=== PATIENT | male | born 1940 | race Caucasian/White ===

== ENCOUNTER 2019-05-13 10:38 | Emergency (ER) | payer OTHER ==
[~2019-05-13] VITALS: Ht 185.4 cm; Wt 103.4 kg
[2019-05-13 11:00] LABS: URINE BILIRUBIN NEGATIVE (Negative); URINE BLOOD 2+ (Negative); URINE CLARITY CLEAR; URINE COLOR YELLOW; URINE GLUCOSE-RANDOM* NEGATIVE (Negative); URINE KETONES NEGATIVE (Negative); URINE LEUKOCYTES-REFLEX NEGATIVE (Negative); URINE NITRITE-REFLEX NEGATIVE (Negative); URINE PROTEIN (DIPSTICK) NEGATIVE (Negative); URINE UROBILINOGEN 0.2 E.U./dl (0.2-1.0)
[2019-05-13 11:13] LABS: ABSOLUTE NEUTROPHILS 6.3 thou/uL (1.4-8.2); BASOPHILS 0.5 % (0.0-2.0); EOSINOPHILS 2.5 % (0.0-3.0); HEMOGLOBIN 15.5 gm/dL (14.0-18.0); LYMPHOCYTES 10.3 % (24.0-44.0); MCH 30.1 pg (26.0-34.0); MCHC 33.8 g/dL (28.0-37.0); MONOCYTES 9.1 % (1.0-8.0); PLATELET COUNT 160 thou/uL (150-400); POLYS 77.6 % (36.0-66.0); RBC 5.16 mil/uL (4.50-6.00); RDW 13.9 % (10.5-14.5); WBC 8.2 thou/uL (4.0-11.0)
[2019-05-13 11:16] LABS: URINE RBC 3-10 Few /HPF (0-2)
[2019-05-13 11:17] LABS: BACTERIA-REFLEX 1-9 Few /HPF (None Seen); CASTS None Seen /LPF (None Seen); CRYSTALS None Seen /LPF (None Seen); SQUAMOUS 0-3 Few /LPF (0-3); URINE WBC-REFLEX 0-5 Rare /HPF (0-5)
[2019-05-13 11:29] LABS: CALCIUM 10.6 mg/dL (8.5-10.1); CREATININE 1.4 mg/dL (0.7-1.3); POTASSIUM 3.9 mmol/L (3.5-5.1)
[2019-05-13 11:35] LABS: ALBUMIN 3.9 g/dL (3.4-5.0); TOTAL BILIRUBIN 1.2 mg/dL (<0.1-1.0); TOTAL PROTEIN 7.1 g/dL (6.4-8.2)
[2019-05-13] MEDS ORDERED: NORCO 5-325 TA1 EAC1 PO (12:21)
[2019-05-13] MEDS ORDERED: FLOMAX0.4 MG PO (12:21)
[2019-05-13 12:47] VITALS: BP 135/76
== END 2019-05-13 12:48 | disposition home or self-care (01) ==
LOC: ER 10:38
PROVIDERS: Emergency Medicine; Physician Assistant
DX: N20.1 Calculus of ureter (principal); R10.31 Right lower quadrant pain; Z87.442 Personal history of urinary calculi

== ENCOUNTER 2021-01-21 13:55 | Emergency (ER) | payer OTHER ==
[~2021-01-21] VITALS: Ht 185.4 cm; Wt 102.1 kg
[~2021-01-21 13:55] MED LIST: FLOMAX0.4 MG PO; NORCO 5-325 TA1 EAC1 PO
[2021-01-21 14:35] LABS: ABSOLUTE NEUTROPHILS 6.2 thou/uL (1.4-8.2); BASOPHILS 0.7 % (0.0-2.0); EOSINOPHILS 1.3 % (0.0-3.0); HEMATOCRIT 47.9 % (42.0-52.0); LYMPHOCYTES 11.3 % (24.0-44.0); MCHC 33.4 g/dL (28.0-37.0); MCV 89.9 fL (80.0-100.0); MONOCYTES 6.3 % (1.0-8.0); PLATELET COUNT 179 thou/uL (150-400); POLYS 80.4 % (36.0-66.0); RBC 5.33 mil/uL (4.50-6.00); RDW 14.6 % (10.5-14.5); WBC 7.7 thou/uL (4.0-11.0)
[2021-01-21 14:43] LABS: CALCIUM 10.7 mg/dL (8.5-10.1); CREATININE 1.3 mg/dL (0.7-1.3); POTASSIUM 4.2 mmol/L (3.5-5.1)
[2021-01-21 14:55] LABS: ALBUMIN 3.8 g/dL (3.4-5.0); DIRECT BILIRUBIN 0.2 mg/dL (<0.1-0.2); TOTAL BILIRUBIN 0.8 mg/dL (0.2-1.0)
[2021-01-21 15:13] LABS: URINE BILIRUBIN NEGATIVE (Negative); URINE BLOOD 1+ (Negative); URINE CLARITY CLEAR; URINE COLOR YELLOW; URINE GLUCOSE-RANDOM* NEGATIVE (Negative); URINE KETONES NEGATIVE (Negative); URINE LEUKOCYTES-REFLEX NEGATIVE (Negative); URINE NITRITE-REFLEX NEGATIVE (Negative); URINE PROTEIN (DIPSTICK) NEGATIVE (Negative); URINE SPECIFIC GRAVITY 1.025 (1.005-1.035)
[2021-01-21 15:28] LABS: CASTS None Seen /LPF (None Seen); SQUAMOUS 0-3 Few /LPF (0-3)
[2021-01-21 15:29] LABS: BACTERIA-REFLEX None Seen /HPF (None Seen); CRYSTALS None Seen /LPF (None Seen); URINE RBC 1-2 Rare /HPF (NONE SEEN); URINE WBC-REFLEX None Seen /HPF (0-5)
[2021-01-21 16:22] VITALS: BP 124/88
== END 2021-01-21 16:22 | disposition home or self-care (01) ==
LOC: ER 13:55
PROVIDERS: Emergency Medicine
DX: T67.8XXA Other effects of heat and light, initial encounter (principal); R41.0 Disorientation, unspecified; Z77.123 Contact with and (suspected) exposure to radon and other naturally occurring radiation; Z87.442 Personal history of urinary calculi; Z79.899 Other long term (current) drug therapy; Z79.891 Long term (current) use of opiate analgesic; X30.XXXA Exposure to excessive natural heat, initial encounter; Y93.89 Activity, other specified; Y92.096 Garden or yard of other non-institutional residence as the place of occurrence of the external cause; Y99.8 Other external cause status

== ENCOUNTER → 2021-05-01 | Outpatient (CLI) | payer OTHER ==
[~2021-05-01] MED LIST changes: +B COMPLEX WITH1 EAC1 PO; +B-121000 MC2 PO; +CENTRUM SILVER1 EAC7 PO; +FISH OIL 1,0001 EAC9 PO; +GLUCOSAMINE CH1 EAC2 PO; +LOSARTAN-HCTZ1 EAC3 PO; +STOOL SOFTENER1 EAC2 PO; +TURMERIC COMPL1 EACH PO
--- NOTE | ~2021-05-01 | O ---
[place] [address] OPERATIVE REPORT Name: SEBASTIAN WATTERS [id number] Ad[facility]: 05/01/21 Attend Phys: Victor Manuel Ruiz MD Discharge: Date of : 44 Report #: [id number] THIS REPORT FOR: cc: Tim Barba MD, Neal A. MD Abraham,Victor Manuel Gould MD ~ DATE OF SERVICE: 05/05/2021 PREOPERATIVE DIAGNOSIS: Left knee osteoarthritis. POSTOPERATIVE DIAGNOSIS: Left knee osteoarthritis. PROCEDURE: Left total knee arthroplasty using Navio robotic assistance. SURGEON: Victor Manuel Ruiz MD CATERING SOUS CHEF: Cande Alonzo PA-C. ANESTHESIA: LMA with adductor canal block. IMPLANTS: N[employer]o [employer] Nephew size 8 Journey II BCS cobalt chrome femur, size 7 tibia, size 11 polyethylene, size 38 patella. TOURNIQUET TIME: 60 minutes. ESTIMATED BLOOD LOSS: 25 mL INDICATION FOR CATERING SOUS CHEF: Throughout the case, extensive retraction, manipulation of the knee was required. This is supported by my assistant teacher. INDICATIONS FOR PROCEDURE: The patient is a 80-year-old gentleman with severe left knee osteoarthritis. He had failed conservative measures for this and after discussion with him, he elected for left total knee arthroplasty. DESCRIPTION OF PROCEDURE: Risks, benefits, alternatives, complications were discussed in detail with the patient including but not limited to risk of anesthesia, risk of damage to nerves, arteries, blood vessels, risk for infection, bleeding, risk for continued knee pain, need for reoperation. Informed consent was obtained from the patient. Left knee was appropriately marked in the preoperative holding area. IV Ancef was given for preoperative antibiotics. He was brought to the operating room and placed in supine position on the operating table. LMA anesthesia was induced without complication. Tourniquet was placed on the left thigh. Left lower extremity was prepped and draped in normal sterile fashion. Timeout was performed properly identifying the patient and procedure as well as the instrumentation and implants. All in the operating room in agreement. Left lower extremity was exsanguinated, [address] [place] [address] OPERATIVE REPORT Name: JANENESEBASTIAN WILSON Room #: REG ANGELA Loyd#: [id number] Admission: 05/01/21 Attend Phys: Victor Manuel Ruiz MD Discharge: Date of : 44 Report #: [id number] tourniquet was inflated. Tourniquet time was 60 minutes. Standard midline approach to knee was made with 10 blade through the skin. Dissection was taken down sharply to the fascia and deep flaps were developed medially and laterally. Fresh 10 blade was used to make a medial parapatellar arthrotomy and the knee was inspected. There was severe tricompartmental osteoarthritis. ACL and PCL were removed sharply. Reference pins were placed in the femur and the tibia. The knee was digitally mapped using the [employer] robotic system. Intraoperative plan was made. We sized to size 8 femur, the size 7 tibia and 10 spacer. After acceptance of the intraoperative plan, the distal femoral cut was made with Navio bur. Distal femoral cutting block was pinned in place and chamfer cuts were made. Attention was turned to the tibia. Remainder of the menisci removed with Bovie cautery. Tibial resection guide was pinned in place using Navio for placement and tibial resection was made. Flexion and extension gaps were checked and found to have good balance in flexion and extension both medially and laterally. Tibia was sized, found to be a size 7. Size 7 tibial trial was placed, pinned and punched. The size ____ was placed and box cut was made. This was then trialed with a size 10 and then a size 11 polyethylene and size 11 polyethylene demonstrated 1-2 mm of laxity medially and laterally throughout range of motion of the knee. A 9 mm of bone was resected from the posterior surface of the patella and a size 38 patellar trial button was placed. Knee was taken through range of motion, found to be stable, found to have good patellar tracking. Trial components were removed. Bone ends were thoroughly irrigated with normal saline. A final size 7 tibia, size 8 Journey II BCS cobalt chrome femur and a size 38 patella were cemented in place using standard cementation techniques. While the cement cured, a periarticular injection consisting of morphine, ropivacaine, epinephrine, Toradol was placed around the knee joint capsule. After the cement cured, the tourniquet was deflated. Hemostasis was obtained with Bovie cautery. Final size 11 polyethylene was placed. A gram of vancomycin was placed deep in the joint. The fascia was closed with 0 Vicryl. Skin was closed with 2-0 Vicryl. Skin staple and a GENA dressing were applied. The patient tolerated this procedure well and went to recovery room under care of anesthesia postoperatively. By: 1825 1841 Victor Manuel Ruiz MD /marquez
[2021-05-01 09:22] LABS: HEMATOCRIT 48.9 % (42.0-52.0); HEMOGLOBIN 16.6 gm/dL (14.0-18.0); MCH 30.2 pg (26.0-34.0); MCHC 33.9 g/dL (28.0-37.0); MCV 89.1 fL (80.0-100.0); RBC 5.49 mil/uL (4.50-6.00); RDW 13.8 % (10.5-14.5)
[2021-05-01 09:32] LABS: ALBUMIN 3.8 g/dL (3.4-5.0); CALCIUM 10.6 mg/dL (8.5-10.1); CREATININE 1.2 mg/dL (0.7-1.3); POTASSIUM 3.5 mmol/L (3.5-5.1)
[2021-05-01 09:34] LABS: INR 1.04; PROTIME 11.3 Seconds (10.5-12.1)
[2021-05-01 10:08] LABS: URINE BILIRUBIN NEGATIVE (Negative); URINE BLOOD TRACE (Negative); URINE CLARITY CLEAR; URINE COLOR YELLOW; URINE GLUCOSE-RANDOM* NEGATIVE (Negative); URINE KETONES NEGATIVE (Negative); URINE LEUKOCYTES-REFLEX NEGATIVE (Negative); URINE NITRITE-REFLEX NEGATIVE (Negative); URINE PROTEIN (DIPSTICK) NEGATIVE (Negative); URINE SPECIFIC GRAVITY 1.025 (1.005-1.035)
--- NOTE | 2021-05-01 14:54 | EKG ---
[address] [address] ELECTROCARDIOGRAM REPORT Name: SEBASTIAN WATTERS Room #: [facility]#: [id number] Admission: 05/01/21 Attend Phys: Victor Manuel Ruiz MD Discharge: Date of : 44 Report #: [id number] [facility] Test Date: 2021-05-01 Test Time: 09:19:39 Pat Name: SEBASTIAN WATTERS Department: Room: Gender: Field Marketing Lead: SURESH CHEN : 1940 Requested By: Victor Manuel Ruiz Order Number: [id number] : Wilber Sanchez Measurements Intervals [place] Rate: 58 P: 22 TN: 200 QRS: 23 QRSD: 86 T: 0 QT: 373 QTc: 367 Interpretive Statements Sinus rhythm No previous ECG available for comparison Electronically Signed On 05-01-2021 14:54:18 ASSISTANT IMPORT MANAGER by Wilber Sanchez [email or web address] <ELECTRONICALLY SIGNED> By: Wilber Sanchez MD, [facility] 05/01/21 1454 0919 8 Wilber Sanchez MD, FACC /EPI
== END ==
LOC: PAC 08:37
PROVIDERS: ATTEND Orthopaedic Surgery
DX: Z01.818 Encounter for other preprocedural examination (principal); M17.11 Unilateral primary osteoarthritis, right knee

== ENCOUNTER 2021-05-05 10:16 | Observation (INO) | payer OTHER ==
[~2021-05-05] VITALS: Ht 180.3 cm; Wt 104.3 kg
--- NOTE | ~2021-05-05 | O ---
[facility] [place] [address] OPERATIVE REPORT Name: SEBASTIAN WATTERS Room #: 443-P [facility] Darrell Loyd#: [id number] Admission: 05/05/21 Attend Phys: Victor Manuel Ruiz MD Discharge: 05/06/21 Date of : 44 Report #: [id number] THIS REPORT FOR: cc: Tim Barba MD, Neal A. MD Abraham,Victor Manuel Golud MD ~ DATE OF SERVICE: 05/05/2021 PREOPERATIVE DIAGNOSIS: Left knee osteoarthritis. POSTOPERATIVE DIAGNOSIS: Left knee osteoarthritis. PROCEDURE: Left total knee arthroplasty using Navio robotic assistance. SURGEON: Victor Manuel Ruiz MD HOME SCHOOL LIAISON OFFICER: Cande Alonzo PA-C. ANESTHESIA: LMA with adductor canal block. IMPLANTS: Nieto and Nephew size 8 Journey II BCS cobalt chrome femur, size 7 tibia, size 11 polyethylene, size 38 patella. TOURNIQUET TIME: 60 minutes. ESTIMATED BLOOD LOSS: 25 mL INDICATION FOR HOME SCHOOL LIAISON OFFICER: Throughout the case, extensive retraction, manipulation of the knee was required. This is supported by my recreational assistant. INDICATIONS FOR PROCEDURE: The patient is a 80-year-old gentleman with severe left knee osteoarthritis. He had failed conservative measures for this and after discussion with him, he elected for left total knee arthroplasty. DESCRIPTION OF PROCEDURE: Risks, benefits, alternatives, complications were discussed in detail with the patient including but not limited to risk of anesthesia, risk of damage to nerves, arteries, blood vessels, risk for infection, bleeding, risk for continued knee pain, need for reoperation. Informed consent was obtained from the patient. Left knee was appropriately marked in the preoperative holding area. IV Ancef was given for preoperative antibiotics. He was brought to the operating room and placed in supine position on the operating table. LMA anesthesia was induced without complication. Tourniquet was placed on the left thigh. Left lower extremity was prepped and draped in normal sterile fashion. Timeout was performed properly identifying the patient and procedure as well as the instrumentation and implants. All in the operating room in agreement. Left lower extremity was exsanguinated, [address] [address] OPERATIVE REPORT Name: SEBASTIAN WATTERS Room #: 443-P [facility] Darrell Loyd#: [id number] Admission: 05/05/21 Attend Phys: Victor Manuel Ruiz MD Discharge: 05/06/21 Date of : 44 Report #: [id number] tourniquet was inflated. Tourniquet time was 60 minutes. Standard midline approach to knee was made with 10 blade through the skin. Dissection was taken down sharply to the fascia and deep flaps were developed medially and laterally. Fresh 10 blade was used to make a medial parapatellar arthrotomy and the knee was inspected. There was severe tricompartmental osteoarthritis. ACL and PCL were removed sharply. Reference pins were placed in the femur and the tibia. The knee was digitally mapped using the [employer] robotic system. Intraoperative plan was made. We sized to size 8 femur, the size 7 tibia and 10 spacer. After acceptance of the intraoperative plan, the distal femoral cut was made with Navio bur. Distal femoral cutting block was pinned in place and chamfer cuts were made. Attention was turned to the tibia. Remainder of the menisci removed with Bovie cautery. Tibial resection guide was pinned in place using Navio for placement and tibial resection was made. Flexion and extension gaps were checked and found to have good balance in flexion and extension both medially and laterally. Tibia was sized, found to be a size 7. Size 7 tibial trial was placed, pinned and punched. The size ____ was placed and box cut was made. This was then trialed with a size 10 and then a size 11 polyethylene and size 11 polyethylene demonstrated 1-2 mm of laxity medially and laterally throughout range of motion of the knee. A 9 mm of bone was resected from the posterior surface of the patella and a size 38 patellar trial button was placed. Knee was taken through range of motion, found to be stable, found to have good patellar tracking. Trial components were removed. Bone ends were thoroughly irrigated with normal saline. A final size 7 tibia, size 8 Journey II BCS cobalt chrome femur and a size 38 patella were cemented in place using standard cementation techniques. While the cement cured, a periarticular injection consisting of morphine, ropivacaine, epinephrine, Toradol was placed around the knee joint capsule. After the cement cured, the tourniquet was deflated. Hemostasis was obtained with Bovie cautery. Final size 11 polyethylene was placed. A gram of vancomycin was placed deep in the joint. The fascia was closed with 0 Vicryl. Skin was closed with 2-0 Vicryl. Skin staple and a GENA dressing were applied. The patient tolerated this procedure well and went to recovery room under care of anesthesia postoperatively. By: 1825 1841 Victor Manuel Ruiz MD /nt
[2021-05-05 12:05] VITALS: BP 133/98
[2021-05-05 18:00] VITALS: BP 128/77
[2021-05-05 18:31] VITALS: BP 124/73
--- NOTE | 2021-05-05 18:35 | NUR ---
[age] YEAR OLD MALE ADMITTED TO [facility] ROOM 443. PT WAS ADMITTED DUE SURGERY LEFT TOTAL KNEE REPLACEMENT. PT ALERT AND ORIENTED TIMES FOUR. VERY PLEASANT. VSS, IVF INFUSING PER ORDER. PT DENIES ANY PAIN AT THIS TIME, PT TOLERATED DINNER. WILL CONTINUE TO MONITOR.
[2021-05-05 20:25] VITALS: BP 115/73
[2021-05-06 03:29] VITALS: BP 117/65
[2021-05-06 09:14] VITALS: BP 110/76
--- NOTE | 2021-05-06 13:00 | NUR ---
Lives alone, independent. Has a walker. not needed to use it in the past. few steps at home. Outpt therapy. Anticipate dc home today.
== END 2021-05-06 15:32 | disposition home or self-care (01) ==
LOC: OR 10:16 → EDSTATUS 11:43 → OR 13:13 → PRE 13:28 → OR 17:23 → 4S 17:36 → OR 17:37 → 4S 17:37
PROVIDERS: ADMIT Orthopaedic Surgery; ATTEND Orthopaedic Surgery
DX: M17.12 Unilateral primary osteoarthritis, left knee (principal); Z20.822 Contact with and (suspected) exposure to COVID-19; M25.551 Pain in right hip; I10 Essential (primary) hypertension; E78.5 Hyperlipidemia, unspecified; M21.6X9 Other acquired deformities of unspecified foot; Z96.651 Presence of right artificial knee joint; Z79.899 Other long term (current) drug therapy
CPT/HCPCS: 27447; 0055T; 10102; 50010; 50101; 50415; 50954; 51130; 51225; 51320; 51412; 52001; 52282; 53000; 53078; 56527; 56528; 57095; 57103; 57110; 57127; 57180; 58239; 62110; 62900; 64043; 65060; 70005